=== PATIENT | female | born 1995 | race Caucasian/White ===

== ENCOUNTER → 2016-12-17 | Outpatient (CLI) | END | disposition home or self-care (01) | DX: M25.579 Pain in unspecified ankle and joints of unspecified foot (principal) ==

== ENCOUNTER → 2017-02-07 | Outpatient (CLI) | payer BC ==
[2017-02-07 12:01] LABS: ADD SCAN DIFF NO
[2017-02-07 12:07] LABS: BASOPHILS % 0.5 % (0.0-2.0); EOSINOPHILS # 0.1 10^3/ul (0.0-0.5); EOSINOPHILS % 1.4 % (0.0-7.0); HEMATOCRIT 36.2 % (37.0-47.0); HEMOGLOBIN 11.8 g/dl (12.0-16.0); LYMPHOCYTES # 2.7 10^3/ul (0.8-2.9); MEAN CORPUSCULAR HEMOGLOBIN 28.4 pg (29.0-33.0); MEAN CORPUSCULAR HGB CONC 32.6 g/dl (32.0-37.0); MEAN CORPUSCULAR VOLUME 87.2 fl (82.0-101.0); MEAN PLATELET VOLUME 9.8 fl (7.4-10.4); MONOCYTE # 0.5 10^3/ul (0.3-0.9); MONOCYTES % 7.3 % (0.0-11.0); NEUTROPHILS % 54.1 % (39.0-77.0); PLATELET COUNT 359 10^3/UL (140-415); RED BLOOD COUNT 4.15 10^6/ul (4.20-5.40); RED CELL DISTRIBUTION WIDTH 13.1 % (11.5-14.5); WHITE BLOOD COUNT 7.4 10^3/ul (4.8-10.8)
[2017-02-07 12:30] LABS: ALANINE AMINOTRANSFERASE 24 IU/L (13-69); ALBUMIN 4.5 g/dl (3.3-4.9); ALBUMIN/GLOBULIN RATIO 1.12; ALKALINE PHOSPHATASE 83 IU/L (42-121); ANION GAP 9 (8-16); ASPARTATE AMINO TRANSFERASE 33 IU/L (15-46); BILIRUBIN,INDIRECT 0.5 mg/dl (0-1.1); BILIRUBIN,TOTAL 0.5 mg/dl (0.2-1.3); BLOOD UREA NITROGEN 9 mg/dl (7-20); CALCIUM 9.8 mg/dl (8.4-10.2); CARBON DIOXIDE 26 mmol/L (21-31); CHLORIDE 105 mmol/L (97-110); CREATININE 0.62 mg/dl (0.44-1.00); GLUCOSE 95 mg/dl (70-220); POTASSIUM 4.1 mmol/L (3.5-5.1); SODIUM 136 mmol/L (135-144); TOTAL PROTEIN 8.5 g/dl (6.1-8.1)
[2017-02-07 12:38] LABS: ADD UMIC YES; URINE BILIRUBIN (Dip) NEGATIVE (NEGATIVE); URINE BLOOD (Dip) NEGATIVE (NEGATIVE); URINE COLOR LT. YELLOW (YELLOW); URINE GLUCOSE (Dip) NEGATIVE (NEGATIVE); URINE KETONES (Dip) NEGATIVE (NEGATIVE); URINE LEUKOCYTE ESTERASE (Dip) TRACE (NEGATIVE); URINE NITRITE (Dip) NEGATIVE (NEGATIVE); URINE TOTAL PROTEIN (Dip) NEGATIVE (NEGATIVE); URINE UROBILINOGEN (Dip) 0.2 E.U./dL (0.1-1.0)
[2017-02-07 13:26] LABS: BACTERIA,URINE MANY; URINE RBCS 0-2 /HPF (0)
[2017-02-08 12:37] LABS: HLA B-27 POSITIVE (NEGATIVE)
[2017-02-08 19:08] LABS: CYCLIC CITRULLINATED PEP IGG <16 UNITS
[2017-02-08 21:11] LABS: ANA SCREEN POSITIVE (NEGATIVE)
[2017-02-08 21:44] LABS: ANA TITER 1:40 titer; TB-NIL 0.02 IU/mL
== END | disposition home or self-care (01) ==
LOC: LAB 11:23
PROVIDERS: ATTEND Specialist
DX: M19.90 Unspecified osteoarthritis, unspecified site (principal)
CPT/HCPCS: 80053; 81001; 81003; 85025; 85651; 86038; 86140; 86200; 86430; 86480; 86803; 86812; 87340

== ENCOUNTER → 2017-06-04 | Outpatient (CLI) | payer BC ==
[2017-06-04 10:27] LABS: BASOPHILS % 0.6 % (0.0-2.0); EOSINOPHILS # 0.1 10^3/ul (0.0-0.5); EOSINOPHILS % 1.8 % (0.0-7.0); HEMATOCRIT 36.1 % (37.0-47.0); HEMOGLOBIN 12.4 g/dl (12.0-16.0); LYMPHOCYTES # 2.1 10^3/ul (0.8-2.9); LYMPHOCYTES % 38.3 % (15.0-51.0); MEAN CORPUSCULAR HEMOGLOBIN 30.8 pg (29.0-33.0); MEAN CORPUSCULAR HGB CONC 34.3 g/dl (32.0-37.0); MEAN CORPUSCULAR VOLUME 89.6 fl (82.0-101.0); MEAN PLATELET VOLUME 9.8 fl (7.4-10.4); MONOCYTE # 0.4 10^3/ul (0.3-0.9); MONOCYTES % 7.6 % (0.0-11.0); NEUTROPHILS % 51.5 % (39.0-77.0); PLATELET COUNT 279 10^3/UL (140-415); RED BLOOD COUNT 4.03 10^6/ul (4.20-5.40); RED CELL DISTRIBUTION WIDTH 12.7 % (11.5-14.5); WHITE BLOOD COUNT 5.4 10^3/ul (4.8-10.8)
[2017-06-04 10:50] LABS: ALBUMIN/GLOBULIN RATIO 1.25; BILIRUBIN,INDIRECT 0.1 mg/dl (0-1.1); BILIRUBIN,TOTAL 0.1 mg/dl (0.2-1.3); CALCIUM 9.5 mg/dl (8.4-10.2); CREATININE 0.87 mg/dl (0.44-1.00); POTASSIUM 4.4 mmol/L (3.5-5.1); TOTAL PROTEIN 7.2 g/dl (6.1-8.1)
== END | disposition home or self-care (01) ==
LOC: LAB 09:59
PROVIDERS: ATTEND Specialist
DX: M06.9 Rheumatoid arthritis, unspecified (principal)
CPT/HCPCS: 80053; 85025; 85651; 86140

== ENCOUNTER → 2017-08-09 | Outpatient (CLI) | payer BC | END | disposition home or self-care (01) | LOC: LAB 16:10 | PROVIDERS: ATTEND Internal Medicine | DX: N34.2 Other urethritis (principal); E03.9 Hypothyroidism, unspecified; E78.5 Hyperlipidemia, unspecified | CPT/HCPCS: 80053; 80061; 84436; 84443; 85025; 86592; 86703; 87591 ==

== ENCOUNTER → 2017-09-24 | Outpatient (CLI) | payer BC ==
[2017-09-24 17:57] LABS: ALANINE AMINOTRANSFERASE 60 IU/L (13-69); ALBUMIN/GLOBULIN RATIO 1.47; ALKALINE PHOSPHATASE 54 IU/L (42-121); ANION GAP 15 (8-16); ASPARTATE AMINO TRANSFERASE 164 IU/L (15-46); BILIRUBIN,INDIRECT 0.4 mg/dl (0-1.1); BILIRUBIN,TOTAL 0.4 mg/dl (0.2-1.3); BLOOD UREA NITROGEN 16 mg/dl (7-20); CALCIUM 9.8 mg/dl (8.4-10.2); CARBON DIOXIDE 25 mmol/L (21-31); CHLORIDE 102 mmol/L (97-110); CREATININE 0.81 mg/dl (0.44-1.00); GLUCOSE 89 mg/dl (70-220); SODIUM 138 mmol/L (135-144); TOTAL PROTEIN 8.4 g/dl (6.1-8.1)
[2017-09-24 18:17] LABS: C-REACTIVE PROTEIN < 0.5 mg/dl (0.0-0.9)
[2017-09-24 20:20] LABS: BASOPHILS % 0.4 % (0.0-2.0); EOSINOPHILS # 0.1 10^3/ul (0.0-0.5); HEMATOCRIT 38.2 % (37.0-47.0); LYMPHOCYTES # 3.5 10^3/ul (0.8-2.9); LYMPHOCYTES % 36.6 % (15.0-51.0); MEAN CORPUSCULAR HEMOGLOBIN 30.4 pg (29.0-33.0); MEAN CORPUSCULAR VOLUME 89.3 fl (82.0-101.0); MEAN PLATELET VOLUME 11.2 fl (7.4-10.4); MONOCYTE # 0.7 10^3/ul (0.3-0.9); MONOCYTES % 7.3 % (0.0-11.0); NEUTROPHIL # 5.2 10^3/ul (1.6-7.5); NEUTROPHILS % 54.4 % (39.0-77.0); PLATELET COUNT 310 10^3/UL (140-415); RED BLOOD COUNT 4.28 10^6/ul (4.20-5.40); RED CELL DISTRIBUTION WIDTH 12.9 % (11.5-14.5); WHITE BLOOD COUNT 9.6 10^3/ul (4.8-10.8)
== END | disposition home or self-care (01) ==
LOC: LAB 17:09
PROVIDERS: ATTEND Specialist
DX: M06.9 Rheumatoid arthritis, unspecified (principal)
CPT/HCPCS: 80053; 85025; 85651; 86140

== ENCOUNTER → 2017-09-26 | Outpatient (CLI) | payer BC ==
[2017-09-26 15:35] LABS: HAAIG REFLEX REFLEX FILED
[2017-09-26 15:39] LABS: BASOPHIL # 0.1 10^3/ul (0.0-0.1); BASOPHILS % 0.5 % (0.0-2.0); EOSINOPHILS # 0.1 10^3/ul (0.0-0.5); EOSINOPHILS % 1.1 % (0.0-7.0); HEMOGLOBIN 12.5 g/dl (12.0-16.0); LYMPHOCYTES # 3.4 10^3/ul (0.8-2.9); LYMPHOCYTES % 34.1 % (15.0-51.0); MEAN CORPUSCULAR HEMOGLOBIN 30.3 pg (29.0-33.0); MEAN CORPUSCULAR HGB CONC 33.8 g/dl (32.0-37.0); MEAN CORPUSCULAR VOLUME 89.6 fl (82.0-101.0); MEAN PLATELET VOLUME 10.4 fl (7.4-10.4); MONOCYTE # 0.8 10^3/ul (0.3-0.9); MONOCYTES % 7.8 % (0.0-11.0); NEUTROPHIL # 5.5 10^3/ul (1.6-7.5); NEUTROPHILS % 56.2 % (39.0-77.0); PLATELET COUNT 266 10^3/UL (140-415); RED BLOOD COUNT 4.13 10^6/ul (4.20-5.40); RED CELL DISTRIBUTION WIDTH 13.1 % (11.5-14.5); WHITE BLOOD COUNT 9.9 10^3/ul (4.8-10.8)
[2017-09-26 16:08] LABS: CK-MB 1.03 ng/ml (0.0-2.4)
[2017-09-26 16:17] LABS: TROPONIN-I < 0.012 ng/ml (0.00-0.12)
[2017-09-26 16:44] LABS: HEPATITIS B CORE ANTIBODY NEGATIVE (NEGATIVE)
[2017-09-26 17:54] LABS: CREATINE KINASE 8121 IU/L (23-200)
[2017-09-27 12:59] LABS: ALBUMIN 4.7 g/dl (3.3-4.9); BILIRUBIN,INDIRECT 0.3 mg/dl (0-1.1); BILIRUBIN,TOTAL 0.3 mg/dl (0.2-1.3); TOTAL PROTEIN 7.9 g/dl (6.1-8.1)
== END | disposition home or self-care (01) ==
LOC: LAB 15:19
PROVIDERS: ATTEND Specialist
DX: R79.89 Other specified abnormal findings of blood chemistry (principal)
CPT/HCPCS: 80076; 82550; 82553; 84484; 85025; 86704; 86709; 86803; 87340

== ENCOUNTER → 2017-10-01 | Outpatient (CLI) | END | disposition home or self-care (01) ==

== ENCOUNTER → 2018-01-07 | Outpatient (CLI) | END | disposition home or self-care (01) ==

== ENCOUNTER → 2018-04-28 | Outpatient (CLI) | END | disposition home or self-care (01) ==

== ENCOUNTER → 2019-03-31 | Outpatient (CLI) | payer BC | END | disposition home or self-care (01) | LOC: LAB 12:49 | PROVIDERS: ATTEND Internal Medicine | DX: E78.5 Hyperlipidemia, unspecified (principal); R73.03 Prediabetes; N39.0 Urinary tract infection, site not specified | CPT/HCPCS: 80053; 80061; 81003; 83036; 85025; 85651; 86140 ==

== ENCOUNTER → 2019-03-31 | Outpatient (CLI) | payer BC | END | disposition home or self-care (01) | LOC: LAB 12:56 | PROVIDERS: ATTEND Specialist | DX: M19.90 Unspecified osteoarthritis, unspecified site (principal); Z79.899 Other long term (current) drug therapy ==